=== PATIENT | female | born 1990 | race Two or more races ===

== ENCOUNTER 2022-10-18 06:30 | Day surgery (SDC) | payer OTHER ==
[2022-10-11 16:10] VITALS: BMI 23.4
[2022-10-18] MEDS ORDERED: DEXAMETHASONE SOD PHOSPHATE/PF 10 MG/ML SDV ONE (09:08)
[2022-10-18] MEDS ORDERED: ROPIVACAINE HCL 0.5% 30ML VIAL ONE (09:08)
[2022-10-18] MEDS ORDERED: ACETAMINOPHEN INJECTION 100 ML IVPB ONE (09:08)
[2022-10-18] MEDS ORDERED: BUPIVACAINE HCL/PF 2.5 MG/ML - 30 ML VIAL IJ ONE (09:16)
[2022-10-18] MEDS ORDERED: EPINEPHrine 1:1,000 1,000 MCG/ML ML ONE (09:16)
[2022-10-18] MEDS ORDERED: MIDAZOLAM HCL 2 MG/2 ML SINGLE DOSE VIAL ONE (09:20)
[2022-10-18] MEDS ORDERED: ACETAMINOPHEN 325 MG TABLET (FP) PO PRN (09:34)
[2022-10-18] MEDS ORDERED: ONDANSETRON 4 MG/2 ML VIAL IVPUSH PRN (09:34)
[2022-10-18] MEDS ORDERED: oxyCODONE HCL 5 MG TABLET PO PRN (09:34)
[2022-10-18] MEDS ORDERED: PROPOFOL 60 ML ONE (09:45)
[2022-10-18] MEDS ORDERED: LACTATED RINGERS SOLUTION 1,000 ML IV SCH (09:45)
[2022-10-18] MEDS ORDERED: ONDANSETRON 4 MG/2 ML VIAL ONE (10:19)
[2022-10-18] MEDS ORDERED: DEXAMETHASONE SOD PHOSPHATE 4 MG/1 ML VIAL ONE (10:19)
[2022-10-18] MEDS ORDERED: KETOROLAC TROMETHAMINE 30 MG/1 ML VIAL ONE (10:20)
[2022-10-18] MEDS ORDERED: PROPOFOL 20 ML ONE ×2 (10:33→11:10)
[2022-10-18] MEDS ORDERED: methylPREDNISolone ACET (DEPO) 40 MG/1 ML VIAL ONE (10:59)
[2022-10-18] MEDS ORDERED: oxyCODONE HCL 5 MG TABLET ONE (13:01)
[2022-10-18 15:15] VITALS: BP 112/65; PULSE 72; RESP 17; TEMP 97
== END 2022-10-18 13:35 | disposition home or self-care (01) ==
LOC: FASU 06:30
PROVIDERS: ATTEND Orthopaedic Surgery
PROC: 0RBK4ZZ Excision of Left Shoulder Joint, Percutaneous Endoscopic Approach (ICD-10-PCS; principal; 2022-10-18 10:13)
DX: M75.32 Calcific tendinitis of left shoulder (principal)
CPT/HCPCS: 81025; 94760